=== PATIENT | male | born 1940 | race Caucasian/White ===

== ENCOUNTER 2017-03-12 05:29 | Day surgery (SDC) | payer MEDICARE, OTHER ==
[2017-03-12] MEDS ORDERED: Sodium Chloride 0.9% 10 ML Syringe FLUSH PRN (06:00)
[2017-03-12] MEDS ORDERED: Dextrose 5%-0.45% NaCl 1,000 ML IV SCH (06:00)
[2017-03-12] MEDS ORDERED: Midazolam 1 MG/ML 2 ML SDV ONE (06:07)
[2017-03-12] MEDS ORDERED: fentaNYL 100 MCG/2 ML SDV ONE (06:08)
[2017-03-12] MEDS ORDERED: fentaNYL 100 MCG/2 ML SDV IV ONE ×3 (06:28→11:25)
[2017-03-12] MEDS ORDERED: Midazolam 1 MG/ML 2 ML SDV IV ONE ×6 (06:30→11:25)
[2017-03-12 08:36] VITALS: BP 99/62
--- NOTE | 2017-03-12 10:02 | OR ---
DATE: 03/12/2017 PROCEDURE: Total colonoscopy, NBI, and multiple cold snare polypectomies. INSTRUMENT USED: CF-H180AL Olympus video colonoscope. PREMEDICATIONS: Fentanyl 100 mcg intravenous, Versed 3 mg intravenous. Nasal O2 cannula. The procedure was done under pulse oximetry, BP recording, and stress engineer. INDICATION: The patient with previous colonic polyp and rectal bleeding. Colonoscopic examination is done for detection of any polypoid lesions and removal, endoscopic hemostasis therapy if needed. DESCRIPTION OF PROCEDURE: Initial rectal exam was unremarkable. Rigid anoscopy was normal. The colonoscope was passed with ease up to the ileocecal area, photographs were taken of the normal-appearing cecum, identified by landmarks of appendiceal orifice and double-bulged ileocecal folds. No bleeding was noted from any of the visualized areas at the commencement of the examination. No stricture. No vascular ectasia. No large isolated ulcerations seen. No evidence of diffuse inflammatory bowel disease in the form of friability, contact bleeding, or ulcerations. In the distal ascending colon, 3 mm sized benign-appearing polyps were noted, 2 in number, NBI views were obtained, photographs were taken, cold snare polypectomies were done, the tissues were retrieved and sent for histopathology. Probing the proximal sides of folds and flexures, using adequate distention and clearing up the stool material, withdrawal of the scope was made. No bleeding was noted from any of the visualized areas of the examination. IMPRESSION: Diminutive ascending colon polyps. The patient tolerated the procedure well. [facility] /[id number]
--- NOTE | 2017-03-12 11:23 | LETTER ---
03/12/2017 Sophie Garcia MD [address] [id number] RE: SHIRLEY VILLAVICENCIO : [address] Garcia: Mr. Shirley Villavicencio had colonoscopic examination done this morning and he tolerated the procedure well. I herewith send a copy of the endoscopy note and photographs for your review. Thank you. Sincerely, [facility] /[id number]
== END 2017-03-12 08:55 | disposition home or self-care (01) ==
LOC: DL.ENDO 05:29
PROVIDERS: ATTEND Internal Medicine Gastroenterology
DX: Z12.11 Encounter for screening for malignant neoplasm of colon (principal); D12.2 Benign neoplasm of ascending colon; Z86.010 Personal history of colon polyps; I10 Essential (primary) hypertension; E03.9 Hypothyroidism, unspecified; N40.0 Benign prostatic hyperplasia without lower urinary tract symptoms; Z88.8 Allergy status to other drugs, medicaments and biological substances; Z90.49 Acquired absence of other specified parts of digestive tract; Z98.890 Other specified postprocedural states
CPT/HCPCS: 45385; J2250; J3010; J7042; 88305

== ENCOUNTER 2024-01-07 05:58 | Day surgery (SDC) | payer MEDICARE, OTHER ==
[2024-01-07] MEDS ORDERED: fentaNYL 100 MCG/2 ML SDV IV ONE (05:59)
[2024-01-07] MEDS ORDERED: Midazolam 1 MG/ML 2 ML SDV IV ONE (05:59)
[2024-01-07] MEDS ORDERED: fentaNYL 100 MCG/2 ML SDV ONE (06:11)
[2024-01-07] MEDS ORDERED: Midazolam 1 MG/ML 2 ML SDV ONE (06:11)
[2024-01-07] MEDS: Dextrose 5%-0.45% NaCl 1,000 ML IV SCH (06:27)
[2024-01-07] MEDS: fentaNYL 100 MCG/2 ML SDV IV ONE ×3 (06:54→06:57)
[2024-01-07] MEDS: Midazolam 1 MG/ML 2 ML SDV IV ONE (06:56)
[2024-01-07 08:18] VITALS: BP 117/66; PULSE 53
== END 2024-01-07 08:37 | disposition home or self-care (01) ==
LOC: DL.ENDO 05:58
PROVIDERS: ATTEND Internal Medicine Gastroenterology
DX: K29.50 Unspecified chronic gastritis without bleeding (principal); K31.9 Disease of stomach and duodenum, unspecified; K22.2 Esophageal obstruction; K31.7 Polyp of stomach and duodenum; K57.10 Diverticulosis of small intestine without perforation or abscess without bleeding; I10 Essential (primary) hypertension; E03.9 Hypothyroidism, unspecified; R79.89 Other specified abnormal findings of blood chemistry; Z88.8 Allergy status to other drugs, medicaments and biological substances; Z88.5 Allergy status to narcotic agent
CPT/HCPCS: 43239; 87077; 88305; J2250; J3010; J7042